=== PATIENT | male | born 1990 ===

== ENCOUNTER 2019-05-06 21:15 | Emergency (ER) | payer SELFPAY ==
[~2019-05-06] VITALS: Ht 190.5 cm; Wt 58.6 kg
[2019-05-06 21:24] VITALS: BP 123/84; PULSE 122; TEMP 98.5
== END 2019-05-06 22:20 | disposition left against medical advice (07) ==
LOC: COL.ER 21:15
DX: R46.89 Other symptoms and signs involving appearance and behavior (principal)